=== PATIENT | female | born 2005 | race Caucasian/White ===

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

== ENCOUNTER 2025-02-07 23:46 | Emergency (ER) | payer OTHER, SELFPAY ==
--- OUTSIDE RECORDS SUMMARY | 2025-02-04 16:00 | XMS_ITS | Encounter Summary ---
Author Organization [facility] [address] [place] [address] Care Team Providers Care Paint Line Production Supervisor Name Role Phone Unavailable Primary Care Provider Unavailabl e Reason for Visit * Reason Comments INFECTION, BLADDER Encounter Details Date Type Department Care Team (Late st Contact Info) Description 02/04/2025 4:00 PM CDT Office Visit [facility] [address] [address] [place] [address] Jose Roman PA-C [address] [place] [address] Urinary tract infection with hematuria, site unspecified (Primary Dx) Social History Tobacco Use Types Packs/Day Years Used Date Smoking Tobacco: Never Smokeless Tobacco: Never Tobacco Cessation:Counseling Given: Not Answered Comments No Sex and Gender Information Value Date Recorded Sex Assigned at Not on file Legal Sex Female 3:41 PM CDT Gender Identity Not on file Sexual Orientation Not on file documented as of this encounter Last Filed Vital Signs Vital Sign Reading Time Taken Comments Blood Pressure 114/66 02/04/2025 3:58 PM CDT Pulse 77 02/04/2025 3:58 PM CDT Temperature 37.4 C (99.3 F) 02/04/2025 3:58 PM CDT Respiratory Rate 16 02/04/2025 3:58 PM CDT Oxygen Saturation 99% 02/04/2025 3:58 PM CDT Inhaled Oxygen Concentration - - Weight - - Height - - Body Mass Index - - documented in this encounter Patient Instructions * Attachments The following attachments cannot be sent through Care Everywhere. * UTI (Urinary Tract Infection): Female (Occitan) documented in this encounter Progress Notes * Jose Roman PA-C - 02/04/2025 4:00 PM CDT Chief Complaint Patient presents with INFECTION, BLADDER Yahaira PAULINO [place] is a 19 y.o.female presents to the Urgent Care for INFECTION, BLADDER Symptoms: dysuria, frequency, flank pain located on the left, and burning Symptoms began 1 day(s) ago and are are worsening. Fever is absent. Significant urinary history: Chronic recurring UTI a lot when younger and Kidney infection when younger and then last month. Current medications include none. Concern or exposure to STD/STI: no. Last Menstrual Period: No LMP recorded. Patient requests an excuse letter for work/school: No SUBJECTIVE: This is a 19 y.o. female who complains of burning with urination, increased urinary frequency, and left flank pain starting yesterday. She notes having a kidney infection diagnosed at a urgent care in [place], [place], one month ago, treated with 7-day course of cephalexin. She has not had other UTI since childhood. She denies abdominal pain, new back pain, nausea, fever, or chills. OBJECTIVE: BP 114/66 (BP Location: Right Arm, BP Cuff Size: Small Adult/Large Pediatrics) Pulse 77 Temp 99.3 ??F (37.4 ??C) (Tympanic) Resp 16 SpO2 99% Physical Exam Vitals reviewed. Constitutional: Comments: Pleasant. Cardiovascular: Rate and Rhythm: Normal rate and regular rhythm. Pulmonary: Effort: Pulmonary effort is normal. Breath sounds: Normal breath sounds. Abdominal: Palpations: Abdomen is soft. Tenderness: There is no abdominal tenderness. There is left CVA tenderness (very mild). There is noright CVA tenderness. Neurological: Mental Status: She is alert and oriented to person, place, and time. Psychiatric: Mood and Affect: Mood normal. Behavior: Behavior normal. Last UA w/microscopic results: Lab Results Component Value Date/Time UCOL Yellow 02/04/2025 04:07 PM URAP Cloudy (A) 02/04/2025 04:07 PM SPGU <=1.005 (A) 02/04/2025 04:07 PM PHUR 6.5 02/04/2025 04:07 PM PROU Negative 02/04/2025 04:07 PM GLUUC Negative 02/04/2025 04:07 PM KETU Negative 02/04/2025 04:07 PM UBGQ 0.2 02/04/2025 04:07 PM BILIU Negative 02/04/2025 04:07 PM BLDU Moderate (A) 02/04/2025 04:07 PM NITRU Negative 02/04/2025 04:07 PM LEUKU Large (A) 02/04/2025 04:07 PM URBCS 4-7 (A) 02/04/2025 04:07 PM UWBC 51-100 (A) 02/04/2025 04:07 PM UBACT Moderate (A) 02/04/2025 04:07 PM UEPI Occasional 02/04/2025 04:07 PM ASSESSMENT / PLAN: 1. Urinary tract infection with hematuria, site unspecified (Primary) - Rx bactrim given, extended dose on recent episode of reported pyelonephritis. - Urinalysis Routine, Micro/Culture if Pos: Clean Catch; Future - sulfamethoxazole-trimethoprim (BACTRIM DS) 800-160 MG tablet; Take 1 Tablet by mouth two times a day for 5 days. Dispense: 10 Tablet; Refill: 0 - continue supportive cares (rest, fluids, OTC pain and fever relievers, as needed) - return to care if new onset or worsening symptoms, or if symptoms not improving as expected. Jose Roman PA-C, 02/04/2025, 4:19 PM documented in this encounter Nursing Notes * Anyi Lopez - 02/04/2025 4:00 PM CDT Yahaira Houston is a 19 y.o.female presents to the Urgent Care for INFECTION, BLADDER Symptoms: dysuria, frequency, flank pain located on the left, and burning Symptoms began 1 day(s) ago and are are worsening. Fever is absent. Significant urinary history: Chronic recurring UTI a lot when younger and Kidney infection when younger and then last month. Current medications include none. Concern or exposure to STD/STI: no. Last Menstrual Period: No LMP recorded. Patient requests an excuse letter for work/school: No documented in this encounter Plan of Treatment Not on file documented as of this encounter Results * (ABNORMAL) Urinalysis Routine, Micro/Culture if Pos: Clean Catch (02/04/2025 4:07 PM CDT) Urine Microscopic Evaluation Reflex Order Comment Urinalysis results meet criteria for reflex, urine microscopic evaluation performed. 02/04/2025 4:12 PM CDT [facility] Color Yellow 02/04/2025 4:12 PM CDT [facility] Clarity Cloudy(A) Clear 02/04/2025 4:12 PM CDT [facility] Specific [place] <=1.005(A) 1.005 - 1.030 02/04/2025 4:12 PM CDT [facility] pH 6.5 5.0 - 8.0 02/04/2025 4:12 PM CDT [facility] Protein Negative Neg/Trace mg/dL 02/04/2025 4:12 PM CDT [facility] Glucose Negative Negative mg/dL 02/04/2025 4:12 PM CDT [facility] Ketones Negative Negative mg/dL 02/04/2025 4:12 PM CDT [facility] Urobilinogen 0.2 <2.0 EU/dL 02/04/2025 4:12 PM CDT [facility] Bilirubin Negative Negative 02/04/2025 4:12 PM CDT [facility] Blood Moderate(A) Neg/Trace 02/04/2025 4:12 PM CDT [facility] Nitrite Negative Negative 02/04/2025 4:12 PM CDT [facility] Leukocyte Esterase Large(A) Negative 02/04/2025 4:12 PM CDT [facility] Source Clean Catch 02/04/2025 4:12 PM CDT [facility] Urine URINE SPECIMEN COLLECTION, CLEAN CATCH / Unknown Non-blood Collection / Unknown 02/04/2025 4:07 PM CDT 02/04/2025 4:07 PM CDT us Jose Roman PA-C LAB_1 Final Re sult [facility] CLIA: [id number] [address] [place] [id number] documented in this encounter Visit Diagnoses Diagnosis Urinary tract infection with hematuria, site unspecified- Primary documented in this encounter
--- OUTSIDE RECORDS SUMMARY | 2025-02-04 16:00 | XMS_ITS | Encounter Summary ---
Author Organization [facility] [address] [place] [address] Care Team Providers Care Hardboard Grinder Name Role Phone Unavailable Primary Care Provider Unavailabl e Reason for Visit * Reason Comments INFECTION, BLADDER Encounter Details Date Type Department Care Team (Late st Contact Info) Description 02/04/2025 4:00 PM CDT Office Visit [facility] [address] [place] [address] Jose Roman PA-C [address] [place] [phone] Urinary tract infection with hematuria, site unspecified [...] Everywhere. * UTI (Urinary Tract Infection): Female (German) documented in this encounter Progress Notes * [...] infection diagnosed at a urgent care in [place], [place], one month ago, treated with 7-day [...] 02/04/2025 4:12 PM CDT [facility] Specific [place] <=1.005(A) 1.005 - 1.030 02/04/2025 4:12 PM [...] LAB_1 Final Re sult [facility] CLIA: [id number] [address] [place] [phone] documented in this encounter Visit Diagnoses Diagnosis Urinary tract infection with hematuria, site unspecified- Primary documented in this encounter
--- OUTSIDE RECORDS SUMMARY | 2025-02-04 16:20 | XMS_ITS | Encounter Summary ---
Author Organization [facility] Address [address] [place] [address] Care Team Providers Care Machine Engraver Name Role Phone Unavailable Primary Care Provider Unavailabl e Encounter Details Date Type Department Care Team (Late st Contact Info) Description 02/04/2025 4:20 PM CDT Lab Visit [facility] [address] [place], [place] [id number] Dysuria Social History Tobacco Use Types Packs/Day Years Used Date Smoking Tobacco: Never Smokeless Tobacco: Never Comments No Sex and Gender Information Value Date Recorded Sex Assigned at Not on file Legal Sex Female 3:41 PM CDT Gender Identity Not on file Sexual Orientation Not on file documented as of this encounter Plan of Treatment Not on file documented as of this encounter Procedures Procedure Name Priority Date/Time Associated Diagnosis Comments URINE CULTURE STAT 02/04/2025 4:07 PM CDT Dysuria URINALYSIS ROUTINE, MICRO/CULTURE IF POS STAT 02/04/2025 4:07 PM CDT Dysuria UA MICRO STAT 02/04/2025 4:07 PM CDT Dysuria documented in this encounter Results * (ABNORMAL) Urine Culture (02/04/2025 4:07 PM CDT) Urine Culture Growth(A) 02/05/2025 7:48 PM T [facility] Urine Culture >100,000 CFU/mL Staphylococcus saprophyticus 02/05/2025 7:48 PM T [facility] Comment:Routine susceptibili ty of Staphyococcus saprophyticus is not recommended by CLSI since infections respond to antimicrobial agents commonly used to treat acute uncomplicated urinary tract infections. Urine URINE SPECIMEN COLLECTION, CLEAN CATCH / Unknown Non-blood Collection / Unknown 02/04/2025 4:07 PM CDT 02/04/2025 4:12 PM CDT us Jose Roman PA-C LAB_1 Final Re sult Performing Organization Address City/[facility] Co de Phone Number [facility] CLIA: [id number] [address] [place] [id number] [place] [address] * (ABNORMAL) Urine Microscopic Evaluation: Clean Catch (02/04/2025 4:07 PM CDT) Urine Culture Comment Urinalysis results meet criteria for reflex, culture performed. 02/04/2025 4:12 PM CDT [facility] Red Blood Cells 4-7(A) 0 - 3 /HPF 02/04/2025 4:12 PM CDT [facility] White Blood Cells 51-100(A) 0 - 5 /HPF 02/04/2025 4:12 PM CDT [facility] Bacteria Moderate(A) None Seen /HPF 02/04/2025 4:12 PM CDT [facility] Squamous Epithelial Cells Occasional None Seen, Occasiona l, Few /HPF 02/04/2025 4:12 PM CDT [facility] Urine URINE SPECIMEN COLLECTION, CLEAN CATCH / Unknown Non-blood Collection / Unknown 02/04/2025 4:07 PM CDT 02/04/2025 4:07 PM CDT us Jose Roman PA-C LAB_1 Final Re sult Performing Organization Address City/[facility] Co de Phone Number [facility] CLIA: [id number] [address] [place] [phone] * (ABNORMAL) Urinalysis Routine, Micro/Culture if Pos: Clean Catch (02/04/2025 4:07 PM CDT) Urine Microscopic Evaluation Reflex Order Comment Urinalysis results meet criteria for reflex, urine microscopic evaluation performed. 02/04/2025 4:12 PM CDT [facility] Color Yellow 02/04/2025 4:12 PM CDT [facility] Clarity Cloudy(A) Clear 02/04/2025 4:12 PM CDT [facility] Specific [place] <=1.005(A) 1.005 - 1.030 02/04/2025 4:12 PM [...] LAB_1 Final Re sult [facility] CLIA: [id number] [address] [place] [address] documented in this encounter Visit Diagnoses Diagnosis Dysuria documented in this encounter
--- OUTSIDE RECORDS SUMMARY | 2025-02-04 16:20 | XMS_ITS | Encounter Summary ---
Author Organization [facility] Address [address] [place] [address] Care Team Providers Care Tomato Grader Name Role Phone Unavailable Primary Care Provider Unavailabl e Encounter Details Date Type Department Care Team (Late st Contact Info) Description 02/04/2025 4:20 PM CDT Lab Visit [facility] [address] [place], [place] [phone] Dysuria Social History Tobacco Use Types Packs/Day [...] Urine Culture Growth(A) 02/05/2025 7:[address] [facility] Urine Culture >100,000 CFU/mL Staphylococcus saprophyticus 02/05/2025 7:[address] [facility] Comment:Routine susceptibili ty of Staphyococcus saprophyticus is not recommended by CLSI since infections respond to antimicrobial agents commonly used to treat acute uncomplicated urinary tract infections. Urine URINE SPECIMEN COLLECTION, CLEAN CATCH / Unknown Non-blood Collection / Unknown 02/04/2025 4:07 PM CDT 02/04/2025 4:12 PM CDT us Jose Roman PA-C LAB_1 Final Re sult Performing Organization Address City/[facility] Co de Phone Number [facility] CLIA: [id number] [address] [place] [phone] [place] [address] * (ABNORMAL) Urine Microscopic Evaluation: Clean Catch [...] LAB_1 Final Re sult Performing Organization Address City/[facility] Co de Phone Number [facility] CLIA: [id number] [address] [place] [phone] * (ABNORMAL) Urinalysis Routine, Micro/Culture if Pos: Clean Catch (02/04/2025 4:07 PM CDT) Urine Microscopic Evaluation Reflex Order Comment Urinalysis results meet criteria for reflex, urine microscopic evaluation performed. 02/04/2025 4:12 PM CDT [facility] Color Yellow 02/04/2025 4:12 PM CDT [facility] Clarity Cloudy(A) Clear 02/04/2025 4:12 PM CDT [facility] Specific [place] <=1.005(A) 1.005 - 1.030 02/04/2025 4:12 PM [...] LAB_1 Final Re sult [facility] CLIA: [id number] [address] [place] [address] documented in this encounter Visit Diagnoses Diagnosis Dysuria documented in this encounter
--- OUTSIDE RECORDS SUMMARY | 2025-02-05 11:12 | XMS_ITS | Encounter Summary ---
Author Organization [facility] Address [address] [place] [address]. [place] [address] Care Team Providers Care Strategic Debriefing Officer Name Role Phone Charisse Saeed MD Primary Care Provider [phone] Reason for Visit * Reason Comments UTI Needs abx, script wa s sent to closed pharmacy Medication Refill Needs abx Encounter Details Date Type Department Care Team ([facility] st Contact Info) Description 02/05/2025 11:12 AM CDT - 02/05/2025 11:36 AM CDT Emergency [facility] Emergency Department [address] [place] [phone] Jd Broderick, PA-C [address] [place] [phone] Pyelonephritis (Primary Dx); Acute cystitis without hematuria Discharge Disposition: Home or Self Care Social History Tobacco Use Types Packs/Day Years [...] your partner or ex-partner? 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 Legal Sex Female 2:58 PM TUMBLING BARREL PAINTER Gender Identity Female 07/08/2024 3:24 PM TUMBLING BARREL PAINTER Sexual Orientation Straight 07/08/2024 3: 24 PM TUMBLING BARREL PAINTER documented as of this encounter Last Filed Vital Signs Vital Sign Reading Time Taken Comments Blood Pressure 110/74 02/05/2025 11:09 AM CDT Pulse 78 02/05/2025 11:09 AM CDT Temperature 36.7 C (98.1 F) 02/05/2025 11:09 AM CDT Respiratory Rate 18 02/05/2025 11:09 AM CDT Oxygen Saturation 99% 02/05/2025 11:09 AM CDT Inhaled Oxygen Concentration - - Weight 52.2 kg (115 lb) 02/05/2025 11:09 AM CDT Height 162.6 cm (5' 4) 02/05/2025 11:09 AM CDT Body Mass Index 19.74 02/05/2025 11:09 AM CDT documented in this encounter Discharge Instructions * Discharge Instructions* Jd Broderick PA-C - 02/05/2025 11:31 AM CDT You are seen today for kidney infection. I prescribed your Bactrim to the hospital outpatient pharmacy. They are open till 4 PM today. Please call back if you are not able to pick this medication up and start taking it. Take antibiotic with food as this can help with upset stomach. Return to the emergency department if you have new or worsening symptoms. Use Tylenol and ibuprofen as needed for body aches and fever control as we discussed. As we are concerned that this has spread up to the kidney I do think we should expand coverage to 10 days. documented in this encounter Medications at Time of Discharge sulfamethoxazole- trimethoprim (BACTRIM DS) 800-160 MG tablet Take 1 tablet by mouth 2 times daily for 10 days. 20 tablet 02/05/2025 02/15/2025 documented as of this encounter ED Notes * Jd Broderick PA-C - 02/05/2025 11:22 AM CDT ED Provider Note [facility] Emergency Department History Chief Complaint Patient presents with UTI Needs abx, script was sent to closed pharmacy Medication Refill Needs abx HPI Yahaira Houston is a 19 year old female, with a history of previous kidney infection, who presents to the emergency department needing antibiotics for UTI. She had presented to urgent care yesterday, had been diagnosed with a urinary tract infection. She is a [employer] student, they sent her prescription to her [facility] pharmacy. However it is a holiday weekend and the pharmacist was closed. She is hoping to get this prescription sooner so presents for evaluation. She reports that she is havingpain on the left side of the back that started yesterday afternoon, felt feverish this morning, didnot take her temperature. No new symptoms since being seen at the urgent care yesterday. Independent historian: None Chart review: Reviewed urgent care note from 02/04/2025. Patient diagnosed with UTI with hematuria. Physical Exam BP: 110/74 Pulse: 78 Temp: 98.1 ??F (36.7 ??C) Resp: 18 Height: 162.6 cm (5' 4) Weight: 52.2 kg (115 lb) SpO2: 99 % Physical Exam Vitals and nursing note reviewed. Constitutional: General: She is not in acute distress. Appearance: Normal appearance. She is not ill-appearing, toxic-appearing or diaphoretic. HENT: Nose: Nose normal. Mouth/Throat: Mouth: Mucous membranes are moist. Pharynx: Oropharynx is clear. Eyes: Extraocular Movements: Extraocular movements intact. Pupils: Pupils are equal, round, and reactive to light. Cardiovascular: Rate and Rhythm: Normal rate and regular rhythm. Pulses: Normal pulses. Heart sounds: Normal heart sounds. Pulmonary: Effort: Pulmonary effort is normal. Breath sounds: Normal breath sounds. Abdominal: Tenderness: There is left CVA tenderness. Musculoskeletal: General: Normal range of motion. Cervical back: Normal range of motion. Right lower leg: No edema. Left lower leg: No edema. Skin: General: Skin is warm and dry. Neurological: General: No focal deficit present. Mental Status: She is alert and oriented to person, place, and time. Psychiatric: Mood and Affect: Mood normal. Behavior: Behavior normal. ED Course, Procedures, & Data Procedures No results found for any visits on 02/05/25. Medications - No data to display Labs Ordered and Resulted from Time of ED Arrival to Time of ED Departure - No data to display No orders to display Independent interpretation: none Discussion of management: none Social determinants of health: unknown Assessment & Plan Yahaira Houston is a 19 year old female who presents to the emergency department for evaluationof medication adjustment. Upon presentation patient is alert and oriented, speaking in full sentences, afebrile, in no acute distress, skin warm pink and dry. Patient was recently diagnosed with a UTI, is requesting prescription to a new pharmacy due to the holiday weekend. Differential included pyelonephritis, acute cystitis, kidney stone. Patient's history and physical exam consistent with an acute uncomplicated pyelonephritis. She recently reported a previous kidney infection. I reviewed the urgent care note do not feel that she needs a repeat urine analysis, will prescribe Bactrim as originally prescribed however will extend coverage to 10 days given that she ishaving left CVA tenderness. Patient is agreeable with this plan, prescription sent to the patient'spharmacy of choice, all questions were answered to the best my ability, return precautions follow-up instructions given. Vital signs are stable. Critical care was not performed. Medical Decision Making The patient's presentation was of low complexity (an acute and uncomplicated illness or injury). The patient's evaluation involved: review of external note(s) from 1 sources (see separate area of note for details) The patient's management necessitated moderate risk (prescription drug management including medications given in the ED). Discharge Medication List as of 02/05/2025 11:33 AM START taking these medications Details sulfamethoxazole-trimethoprim (BACTRIM DS) 800-160 MG tablet Take 1 tablet by mouth 2 times daily for 10 days., Disp-20 tablet, R-0, E-Prescribe Final diagnoses: Pyelonephritis Acute cystitis without hematuria Jd Broderick PA-C, CAQ-EM [facility] 02/05/2025 Jd Broderick PA-C 02/06/25 0942 * Britni Donnelly RN - 02/05/2025 11:08 AM CDT Patient was at Urgent Care yesterday and was diagnosed with a UTI. Patient is a patient at the and they sent her prescription for antibiotics to the pharmacy on campus, however it is closed on weekends and tomorrow for the holiday. Patient is looking to get the prescription. documented in this encounter Plan of Treatment Not on file documented as of this encounter Visit Diagnoses Diagnosis Pyelonephritis- Primary Pyelonephritis, unspecified Acute cystitis without hematuria Acute cystitis documented in this encounter Care Teams Strategic Debriefing Officer Relationship Specialty Start Date End Date Charisse Saeed MD [address] [place] [address] PCP - General 08/15/24 documented as of this encounter
--- OUTSIDE RECORDS SUMMARY | 2025-02-05 11:12 | XMS_ITS | Encounter Summary ---
Author Organization [facility] Address [address] [place] [address]. [place] [address] Care Team Providers Care High Pressure Operator Name Role Phone Charisse Saeed MD Primary Care Provider [phone] Reason for Visit * Reason Comments UTI Needs abx, script wa s sent to closed pharmacy Medication Refill Needs abx Encounter Details Date Type Department Care Team ([facility] st Contact Info) Description 02/05/2025 11:12 AM CDT - 02/05/2025 11:36 AM CDT Emergency [facility] Emergency Department [address] [phone] Jd Broderick, PA-C [address] [place] [address] [phone] Pyelonephritis (Primary Dx); Acute cystitis without hematuria [...] Sex Assigned at Female 07/08/2024 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 She is a [employer] student, they sent her prescription to her [facility] pharmacy. However it is a holiday [...] cystitis without hematuria Jd Broderick PA-C, CAQ-EM [facility] 02/05/2025 Jd Broderick PA-C 02/06/25 [...] cystitis documented in this encounter Care Teams High Pressure Operator Relationship Specialty Start Date End Date Charisse Saeed MD [address] [place] [address] PCP - General 08/15/24 documented as of this encounter
--- NOTE | 2025-02-07 23:47 | ED_ITS ---
HPI - General Adult General Time Seen by Provider: 23:47 Date Seen: 02/07/25 Chief complaint: Urogenital Problems, Female Stated complaint: uti Time Seen by Provider: 02/07/25 23:46 Source: patient, RN notes reviewed and old records reviewed Mode of arrival: ambulatory Limitations: no limitations History of Present Illness HPI narrative: 19-year-old female who comes in today with concern for flank pain. Patient reports recently being treated for urinary tract infection, urinary symptoms have improved but she continues to have left low back pain. This is worse with movement standing. She has been taking ibuprofen. Mild nausea, no vomiting. Related Data Home Medications ?Medication ?Instructions ?Recorded ?Confirmed escitalopram oxalate 10 mg tablet 10 mg PO DAILY 07/1002/07/25 levonorgestrel (Mirena) 1 device intrauterine ONCE 0 12/12/24 12/12/24 meloxicam 15 mg tablet 15 mg PO DAILY 12/12/24 0712/30 multivitamin 1 tab PO QAM 12/12/24 Allergies Allergy/AdvReac Type Severity Reaction Status Date / Time No Known Drug Allergies Allergy Verified 02/07/25 23:55 [facility] Medical History Perioral dermatitis ?L71.0 - Perioral dermatitis (ICD-10) Social History Smoking Status: Never smoker Second hand tobacco smoke exposure: No How often do you have a drink containing alcohol: never AUDIT-C Alcohol total score: 0 Non-prescribed substance use: denies use Exam 2 Narrative: Exam Narrative: General: Well-developed and well-nourished, no acute distress Head: Atraumatic and normocephalic Eyes: Pupils are equal reactive, extraocular motions intact, conjunctiva clear ENT: External nose and ears are normal, posterior pharynx without erythema or exudate Neck: No midline cervical tenderness, full spontaneous range of motion the neck, trachea midline, no adenopathy Heart: Regular rate and rhythm no murmurs or thrills Lungs: Clear to auscultation bilaterally without wheezes or crackles Abdomen: Soft, nontender, nondistended with active bowel sounds Musculoskeletal: No tenderness, deformity, or edema. Left mid lumbar tenderness, no left CVA tenderness. Neurologic: Awake, alert, and oriented x3, no gross focal neurologic deficits, cranial nerves intact as tested Psych: Mood and affect are appropriate Skin: No rashes Const: Vital Signs, click to edit/add: Vital Signs - 24 hr 02/07/25 23:52 Temperature 98.1 F Pulse Rate [Pulse Oximeter] 88 Respiratory Rate 18 Blood Pressure [Ri ght Upper Arm] 134/71 Pulse Oximetry 98 Oxygen Delivery Me thod Room Air Course Course ED Course: Reviewed prior urgent care visit from December 2024 when patient was seen with dysuria and urinary frequency. At that time, urinalysis with 50-100 red cells, 50-100 white cells, culture negative. Also reviewed emergency department visit from February 05 when patient was seen for kidney infection, patient was prescribed Bactrim. Urinalysis demonstrated moderate blood and large leukocyte esterase, 50-100 white cells with moderate bacteria, culture demonstrates Staph saprophyticus. Urinalysis independently interpreted by me negative for findings for infection. Patient is concerned about ongoing left back pain in setting of recent urinary tract infection. We discussed findings on urine today which show resolution of the previous infection. Patient mom were still little concerned about possible other pathology including kidney stone. CT scan will be ordered although I suspect that patient's pain may be musculoskeletal at this point. Ibuprofen ordered. Reevaluation(s) Time of Reevaluation #1: 00:52 Reevaluation #1: CT abdomen and pelvis independently interpreted by me without evidence of hydronephrosis, ureteral stone. Patient is stable for discharge with continued treatment with and ibuprofen. Vital Signs Vital signs: Initial Vital Signs Temperature 98.1 F 02/07/25 23:52 Temperature Source Temporal Artery Scan 02/07/25 23:52 Pulse Rate 88 02/07/25 23:52 Respiratory Rate 18 02/07/25 23:52 Blood Pressure 134/71 02/07/25 23:52 Blood Pressure Mean 92 02/07/25 23:52 Blood Pressure Position Sitting 02/07/25 23:52 Pulse Oximetry 98 02/07/25 23:52 Oxygen Delivery Method Room Air 02/07/25 23:52 Vital Signs Temperature 98.1 F 02/07/25 23:52 Pulse Rate 88 02/07/25 23:52 Respiratory Rate 18 02/07/25 23:52 Blood Pressure 134/71 02/07/25 23:52 Pulse Oximetry 98 02/07/25 23:52 Oxygen Delivery Method Room Air 02/07/25 23:52 Temperature 98.1 F 02/07/25 23:52 Pulse Rate 88 02/07/25 23:52 Respiratory Rate 18 02/07/25 23:52 Blood Pressure 134/71 02/07/25 23:52 Pulse Oximetry 98 02/07/25 23:52 Oxygen Delivery Method Room Air 02/07/25 23:52 Medications Administered Medications: Generic Name Dose Route Start Last Admin Trade Name Sapna PRN Reason Stop Dose Admin Ibuprofen 600 mg 02/08/25 00:36 02/08/25 00:41 Ibuprofen 600 Mg Tablet PO 02/08/25 00:37 600 mg ONCE ONE Administration Medical Decision Making Lab Data Labs: Lab Results 02/07/25 Range/Units 23:57 Urine Color Yellow (Yellow) Urine Appearance Clear (Clear) Urine pH 7.0 (5.0-8.5) Ur Specific Oil Trough 1.010 (1.000-1.030) Urine Protein Negative (Negative) Urine Glucose (UA) Negative (Negative) Urine Ketones Negative (Negative) Urine Blood Trace-intact A (Negative) Urine Nitrite Negative (Negative) Urine Bilirubin Negative (Negative) Urine Urobilinogen 0.2 (0.2-1.0) Ur Leukocyte Esterase Negative (Negative) Urine RBC 0-2 (0-2) Urine WBC 0-2 (0-5) Ur Squamous Epith Cells Few (None-Few) Urine Bacteria None (None) Discharge Plan Discharge Clinical Impression: Acute left flank pain, Acute urinary tract infection Patient Disposition: Home, Self-Care Condition: Stable Instructions: Flank Pain (ED) Additional Instructions: Continue Tylenol and ibuprofen for pain Warm packs as needed Activity Level: No Restrictions Discharge Diet: Regular Prescriptions: No Action Mirena 21 mcg/24hr (up to 8 yrs) 52 mg intrauterine device 1 device intrauterine ONCE Rx Instructions: as a single dose multivitamin Tablet 1 tab PO QAM meloxicam 15 mg tablet 15 mg PO DAILY escitalopram oxalate 10 mg tablet 10 mg PO DAILY Follow Up/Referrals: Charisse Saeed MD [Primary Care Provider, Pediatrics] Stand Alone Forms: [facility] Instructions
--- OUTSIDE RECORDS SUMMARY | 2025-02-07 23:48 | XMS_ITS | Clinical Summary ---
Author Organization Formerly [facility] Address [address] [place] [address] Care Team Providers Care Supervisor Cook [facility] Name Role Phone Unavailable Primary Care Provider Unavailabl e Source Comments You are receiving this document as you are listed as the primary care provider,follow-up provider, or the patient has been referred to you for consultation.This is in compliance with the Medicare and[facility] EHR Incentive Program,which states Providers who transition their patient to another setting of careor provider of care or refers their patient to another provider of care shouldprovide summary care record for each transition of care or referral. [facility] Allergies No known active allergies Medications escitalopram (LEXAPRO) 10 MG tablet Take 1 Tablet (10 mg) by mouth daily. Active sulfamethoxazole -trimethoprim (BACTRIM DS) 800-160 MG tabletIndication s:Urinary tract infection with hematuria, site unspecified Take 1 Tablet by mouth two times a day for 5 days. 10 Tablet 02/04/2025 Active Active Problems No known active problems Encounters Date Type Department Care Team Description 02/06/2025 Results Follow-Up Virtual Urgent Care [address] [place] [address] Elinor Ramirez APRN, BRITTANY 02/04/2025 4:20 PM CDT Lab Visit [facility] [address] [facility] [place] [address] Dysuria 02/04/2025 4:00 PM CDT Office Visit [facility] [address] [place] [address] Jose Roman PA-C Urinary tract infection with hematuria, site unspecified (Primary Dx) from Last 3 Months Social History Tobacco Use Types Packs/Day Years Used Date Smoking Tobacco: Never Smokeless Tobacco: Never Tobacco Cessation:Counseling Given: Not Answered Comments No Sex and Gender Information Value Date Recorded Sex Assigned at Not on file Legal Sex Female 3:41 PM CDT Gender Identity Not on file Sexual Orientation Not on file Last Filed Vital Signs Vital Sign Reading Time Taken Comments Blood Pressure 114/66 02/04/2025 3:58 PM CDT Pulse 77 02/04/2025 3:58 PM CDT Temperature 37.4 C (99.3 F) 02/04/2025 3:58 PM CDT Respiratory Rate 16 02/04/2025 3:58 PM CDT Oxygen Saturation 99% 02/04/2025 3:58 PM CDT Inhaled Oxygen Concentration - - Weight - - Height - - Body Mass Index - - Plan of Treatment Health Maintenance Due Date Last Done Comments Hep C Screening (Preventive Services) 2005 MenB Immunization Discussion 2005 HGB 2017 HIV Screening (Preventive Services) 2021 Adult Preventive Visit 2023 HepB Vaccine (1) 2024 COVID-19 Vaccine ( season) 2025 09/30/2021, 11/20/2020, 10/23/2020 Influenza Vaccine (#1) 2025 , 02/18/2021, 04/24/2020, Additional history exists Chlamydia 05/06/2025 05/06/2024, 04/09, 06/20/2022 DTaP/Tdap/Td Vaccine (7 - Tdap) 01/19/2027 01/19/2017, 06/17/2010, 10/02/2006, Additional history exists Zoster/Shingles Vaccine (1 of 2) 2055 Hib Vaccine Completed 10/02/2006, 11/2005, 2005 Pneumococcal Vaccine Aged Out 10/02/2006, 2005, 2005, Additional history exists No longer eligible based on patient's age to complete this topic HepA Vaccine Completed 05/11/2007, 10/02/2006 IPV (Polio) Vaccine Completed 06/17/2010, 10/02/2006, 2005, Additional history exists HPV Vaccine Completed 01/19/2017, 01/16/2015 MCV4 Vaccine Completed 05/20/2021, 01/19/2017 Procedures Procedure Name Priority Date/Time Associated Diagnosis Comments URINE CULTURE STAT 02/04/2025 4:07 PM CDT Dysuria UA MICRO STAT 02/04/2025 4:07 PM CDT Dysuria URINALYSIS ROUTINE, MICRO/CULTURE IF POS STAT 02/04/2025 4:07 PM CDT Dysuria from Last 3 Months Results * (ABNORMAL) Urine Culture (02/04/2025 4:07 PM CDT) Urine Culture Growth(A) 02/05/2025 7:48 PM CDT [facility] Urine Culture >100,000 CFU/mL Staphylococcus saprophyticus 02/05/2025 7:48 PM CDT [facility] Comment:Routine susceptibili ty of Staphyococcus saprophyticus is not recommended by CLSI since infections respond to antimicrobial agents commonly used to treat acute uncomplicated urinary tract infections. Urine URINE SPECIMEN COLLECTION, CLEAN CATCH / Unknown Non-blood Collection / Unknown 02/04/2025 4:07 PM CDT 02/04/2025 4:12 PM CDT us Jose Roman PA-C LAB_1 Final Re sult [facility] CLIA: [id number] [address] [place] [address] * (ABNORMAL) Urinalysis Routine, Micro/Culture if Pos: Clean Catch (02/04/2025 4:07 PM CDT) Urine Microscopic Evaluation Reflex Order Comment Urinalysis results meet criteria for reflex, urine microscopic evaluation performed. 02/04/2025 4:12 PM CDT [facility] Color Yellow 02/04/2025 4:12 PM CDT [facility] Clarity Cloudy(A) Clear 02/04/2025 4:12 PM CDT [facility] Specific Girard <=1.005(A) 1.005 - 1.030 02/04/2025 4:12 PM [...] LAB_1 Final Re sult [facility] CLIA: [id number] [address] [place] [address] * (ABNORMAL) Urine Microscopic Evaluation: Clean Catch [...] LAB_1 Final Re sult [facility] CLIA: [id number] [address] [place] [address] from Last 3 Months [place] [address]
--- OUTSIDE RECORDS SUMMARY | 2025-02-07 23:48 | XMS_ITS | Encounter Summary ---
Author Organization [facility] Address [address] [place] [address]. [place] [address] Care Team Providers Care Business Account Leader Name Role Phone Charisse Saeed MD Primary Care Provider [phone] Encounter Details Date Type Department Care Team (Late st Contact Info) Description 09/07/2024 [facility] [address] [place] [address] Claudia Abbott, PT [address] [place] [address] Social History Tobacco Use Types Packs/Day [...] Sex Assigned at Female 07/08/2024 3:[address] MRI TECHNOLOGIST Legal Sex Female 2:[address] MRI TECHNOLOGIST Gender Identity Female 07/08/2024 3:[address] MRI TECHNOLOGIST Sexual Orientation Straight 07/08/2024 3: [address] MRI TECHNOLOGIST documented as of this encounter Plan of Treatment Not on file documented as of this encounter Visit Diagnoses Not on filedocumented in this encounter Care Teams Business Account Leader Relationship Specialty Start Date End Date Charisse Saeed MD [address] [facility] [address] PCP - General 08/15/24 documented as of this encounter
--- OUTSIDE RECORDS SUMMARY | 2025-02-07 23:48 | XMS_ITS | Encounter Summary ---
[facility] Address [address] [place] [address] Care Team Providers Care Coil Cutter Name Role Phone Unavailable Primary Care Provider Unavailabl e Encounter Details Date Type Department Care Team (Late st Contact Info) Description 02/06/2025 Results Follow-Up Virtual Urgent Care [address] [place] [address] Elinor Ramirez, SCHOOL OFFICE ASSISTANT, [facility] [address] [address] Social History Tobacco Use Types Packs/Day Years [...]
--- OUTSIDE RECORDS SUMMARY | 2025-02-07 23:48 | XMS_ITS | Encounter Summary ---
Author Organization [facility] Address [address] [place] [address]. [place] [address] Care Team Providers Care Roofing Apprentice Name Role Phone Charisse Saeed MD Primary Care Provider Encounter Details Date Type Department Care Team (Latest Contact Info) Description 02/05/2025 Travel Social History Tobacco Use Types Packs/Day [...] Sex Assigned at Female 07/08/2024 3:24 PM HIP HOP DANCER Legal Sex Female 2:58 PM HIP HOP DANCER Gender Identity Female 07/08/2024 3:24 PM HIP HOP DANCER Sexual Orientation Straight 07/08/2024 3: 24 PM HIP HOP DANCER documented as of this encounter Plan of Treatment Not on file documented as of this encounter Visit Diagnoses Not on filedocumented in this encounter Care Teams Roofing Apprentice Relationship Specialty Start Date End Date [place] [address] PCP - General 08/15/24 documented as of this encounter
--- OUTSIDE RECORDS SUMMARY | 2025-02-07 23:48 | XMS_ITS | Clinical Summary ---
Author Organization [place] Address [address] [place] [address]. [place] [address] Care Team Providers Care Country Printer Apprentice Name Role Phone Charisse Saeed MD Primary Care Provider [phone] Allergies No known active allergies Medications sulfamethoxazole -trimethoprim (BACTRIM DS) 800-160 MG tablet Take 1 tablet by mouth 2 times daily for 10 days. 20 tablet 02/05/2025 Active Active Problems Problem Noted Date Diagnosed Date Lumbar radiculopathy 08/17/2024 Spondylolisthesis of lumbar region 08/17/2024 Encounters Date Type Department Care Team Description 02/05/2025 11:12 AM CDT - 02/05/2025 11:36 AM CDT Emergency [facility] Emergency Department [address] [place] [address] Jd Broderick, PA-C Pyelonephritis (Primary Dx); Acute cystitis without hematuria Discharge Disposition: Home or Self Care 02/05/2025 Travel from Last 3 Months Social History [...] Sex Assigned at Female 07/08/2024 3:24 PM POSTAL SERVICE MAIL PROCESSOR Legal Sex Female 2:58 PM POSTAL SERVICE MAIL PROCESSOR Gender Identity Female 07/08/2024 3:24 PM POSTAL SERVICE MAIL PROCESSOR Sexual Orientation Straight 07/08/2024 3: 24 PM POSTAL SERVICE MAIL PROCESSOR Last Filed Vital Signs Vital Sign Reading [...] Mass Index 19.74 02/05/2025 11:09 AM CDT Plan of Treatment Health Maintenance Due Date Last Done Comments ADVANCE CARE PLANNING 2005 ANNUAL REVIEW OF HM ORDERS 2005 MENINGITIS B VACCINE (1 of 2 - Standard) 2021 HEPATITIS C SCREENING 2023 PHQ-2 (once per calendar year) 2024 COVID-19 VACCINE ( - season) 2025 09/30/2021, 11/20/2020, 10/23/2020 INFLUENZA VACCINE (#1) 2025 , 02/18/2021, 04/24/2020, Additional history exists CHLAMYDIA SCREENING [...] complete this topic IPV VACCINE Completed 06/17/2010, 09/07, 2005, Additional history exists VARICELLA VACCINE Completed 06/17/2010, , 04/14/2006 HPV VACCINE Completed 01/19/2017, 01/16/2015 MENINGITIS VACCINE Completed 05/20/2021, 01/19/2017 HIV SCREENING Completed 06/17/2024 Insurance [facility] Care Teams Country Printer Apprentice Relationship Specialty Start Date End Date Charisse Saeed MD [address] [place] [address] PCP - General 08/15/24
--- OUTSIDE RECORDS SUMMARY | 2025-02-07 23:49 | XMS_ITS | Clinical Summary ---
Author Organization [facility] Address [facility] [place] [address] Care Team Providers Care Passenger Relations Representative Name Role Phone Charisse Saeed MD Primary [...] Description 11/29/2024 7:40 AM CDT Office Visit [facility] [address] [place] [address] Yoan Santos MD Procedure (Bilateral L5-S1 TFESI) 11/24/2024 Travel 11/09/2024 Transcribe Orders [facility] [address] [place] [address] Yoan Santos MD from Last 3 Months Immunizations Immunization Administration Dates Next Due AMB Influenza, IIV3 (Age >=3 years)(Flu Clinic Only) 04/18/2013 COVID-19 vaccine (Pfizer-Bio NTech 30mcg/0.3mL) 12YO+ SKYLER-SUCROSE PF, MDV 09/30/2021 COVID-19 vaccine (Pfizer-Bio NTech 30mcg/0.3mL) PF, MDV 11/20/2020,10/23/2020 [id number]-SNI (Pediarix) 10/02/2006,10/07,2005,05/29 DTaP-IPV (Kinrix) 06/17/2010 HIB PRP-OMP [...] on file Legal Sex Female 7:12 AM CLIPPING MARKER Gender Identity Not on file Sexual Orientation [...] lb 6.4 oz) 06/23/2024 3:37 P M CLIPPING MARKER Height 163.5 cm (5' 4.37) 06/17/2024 7:46 AM CS T Head Circumference 48.3 cm 05/11/2007 11 :54 AM CLIPPING MARKER Head Circumference Percentile 69.27% 11:54 AM CLIPPING MARKER Growth Chart: [facility] (Girls, 0- 36 Months) Body Mass Index 20.43 06/17/2024 7:46 AM CLIPPING MARKER Plan of Treatment Health Maintenance Due Date Last Done Comments Hepatitis C screening for age 18-79 2023 COVID-19 vaccine series ( season) 2025 09/30/2021, 11/20/2020, 10/23/2020 Influenza [...] Additional history exists Tetanus booster 01/19/2027 01/19/2017 RSV vaccine for adults or (1 - 1-dose 75+ series) 2080 Hepatitis B series for 19+ Completed 10/02, 2005, 2005, Additional history exists Pneumococcal series for age 6-49 Aged Out 10/02/2006, 2005, 2005, Additional history exists No longer eligible based on patient's age to complete this topic HPV series for age 9-26 Completed 01/19/2017, 01/16 Meningococcal series for age 11-21 Completed 05/20/2021, 01/19/2017 HIV for age 15-65 Completed 06/17/2024 Procedures Procedure Name Priority Date/Time Associated Diagnosis Comments AMB EPIDURAL STEROID INJECTION Routine 11/29/2024 12:00 AM CDT Spinal stenosis, lumbar region, with neurogenic claudication ANTI HIV 1/2 Routine 06/17/2024 8:15 AM CLIPPING MARKER Screening for HIV (human immunodeficiency virus) GC CHLAMYDIA TRACH PROBE Routine 05/06/2024 8:58 AM CLIPPING MARKER Screening examination for STI from Last 3 Months or Most Recently Relevant to Health Maintenance Results * AMB EPIDURAL STEROID INJECTION (11/29/2024 12:00 AM CDT) us Yoan Santos MD NEUROLOGY ORD Final Resu lt * ANTI HIV 1/2 [05135.0] (06/17/2024 8:15 AM CLIPPING MARKER) HIV AG/AB, 4TH GEN NON-REACT HAYDEN NON-REACT HAYDEN [employer] [facility] Comment: HIV-1 antigen and HIV-1/HIV-2 antibodies were [...] purpose. For additional information please refer to http://education.UPlanMe.ComplyMD/faq/RBN524 (This link is being provided for informational/ educational purposes only.) The performance of this assay has not been clinically validated in patients less than 2 years old. Blood BLOOD SPECIMEN / Unknown 06/17/2024 8:15 AM CLIPPING MARKER 06/17/2024 8:16 AM CLIPPING MARKER us Charisse Saeed MD SEND OUTS Fin al Result [employer] [facility] [address] [place] [address], [employer] [facility] [address] [place] [address] * GC CHLAMYDIA TRACH PROBE (05/06/2024 8:58 AM CLIPPING MARKER) CHLAMYDIA PROBE Negative 6:21 PM CLIPPING MARKER [facility] N GONORRHOEAE PROBE Negative 05/06/2024 6:21 PM CLIPPING MARKER [facility] Other URINE SPECIMEN / Unknown Non-Blood / Unknown 05/06/2024 8:58 AM CLIPPING MARKER 05/06/2024 9:06 AM CLIPPING MARKER us Charisse Saeed MD MICROBIOLOGY Fin al Result Performing Organization Address City/[facility]/ZIP Co de Phone Number [facility] [address] [place] [address], from Last 3 Months or Most Recently Relevant to Health Maintenance Insurance [facility] Care Teams Passenger Relations Representative Relationship Specialty Start Date End Date Charisse Saeed MD [address] [place] [address] PCP - General 05
[2025-02-07 23:52] VITALS: BP 134/71; PULSE 88; RESP 18; TEMP 36.7; O2SAT 98; BMI 19.7
[2025-02-08 00:11] LABS: Appearance Urine Clear (Clear)
--- NOTE | 2025-02-08 00:36 | CRLHL7_ITS ---
For Patients: As a result of the Century Cures Act, medical imaging exams and procedure reports are released immediately into your electronic medical record. You may view this report before your referring provider. If you have questions, please contact your health care provider. INDICATION: Left flank pain, recent kidney infection, question stone. TECHNIQUE: CT of the abdomen and pelvis without IV contrast. Coronal and sagittal reconstructions. COMPARISON: None. FINDINGS: Lower chest: Unremarkable. Liver: Unremarkable. Gallbladder and bile ducts: Unremarkable. No biliary dilatation. Spleen: Unremarkable. Pancreas: Unremarkable. Adrenal glands: Unremarkable. Kidneys, Ureters, and Bladder: No hydronephrosis or ureteral dilation. No intrarenal or ureteral calculi. Marked circumferential bladder wall thickening. Reproductive organs: IUD in the uterus. GI tract/Peritoneum: No small bowel dilation. Large stool burden. Negative appendix. No intraperitoneal free air or fluid. Vasculature: Abdominal aorta is normal in caliber. Lymph nodes: No lymphadenopathy. Abdominal Wall: Umbilical piercing. 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 IMPRESSION: 1. Marked bladder wall thickening suggesting inflammation. Correlate with urinalysis. 2. No hydronephrosis or obstructing urinary calculi. 3. Large stool burden. Please note that all CT scans at this facility use dose modulation, iterative reconstruction, and/or weight-based dosing when appropriate to reduce radiation dose to as low as reasonably achievable. Dictated by Dona Meyers MD @ 02/08/2025 1:16:41 AM (Electronically Signed)
--- OUTSIDE RECORDS SUMMARY | 2025-02-08 00:39 | XMS_ITS | Clinical Summary ---
Author Organization [place] [facility] Address [address] [place] [address]. [place] [address] Care Team Providers Care Oracle Security Consultant Name Role Phone Charisse Saeed MD Primary Care Provider [phone] Allergies No known active allergies Medications sulfamethoxazole -trimethoprim (BACTRIM DS) 800-160 MG tablet Take 1 tablet by mouth 2 times daily for 10 days. 20 tablet 02/05/2025 Active Active Problems Problem Noted Date Diagnosed Date Lumbar radiculopathy 08/17/2024 Spondylolisthesis of lumbar region 08/17/2024 Encounters Date Type Department Care Team Description 02/05/2025 11:12 AM CDT - 02/05/2025 11:36 AM CDT Emergency [facility] Emergency Department [address] [place] [address] Jd Broderick, PA-C Pyelonephritis (Primary Dx); Acute [...] Sex Assigned at Female 07/08/2024 3:24 PM FEED WEIGHER Legal Sex Female 2:58 PM FEED WEIGHER Gender Identity Female 07/08/2024 3:24 PM FEED WEIGHER Sexual Orientation Straight 07/08/2024 3: 24 PM FEED WEIGHER Last Filed Vital Signs Vital Sign Reading [...] 05/20/2021, 01/19/2017 HIV SCREENING Completed 06/17/2024 Insurance [facility] Care Teams Oracle Security Consultant Relationship Specialty Start Date End Date Charisse Saeed MD [address] [place] [address] PCP - General 08/15/24
--- OUTSIDE RECORDS SUMMARY | 2025-02-08 00:39 | XMS_ITS | Encounter Summary ---
Author Organization [place] Address [address] [place] [address]. [place] [address] Care Team Providers Care Coat Padder Name Role Phone Charisse Saeed MD Primary Care Provider [phone] Encounter Details Date Type Department Care Team [...] Sex Assigned at Female 07/08/2024 3:24 PM INSURANCE VERIFICATION REPRESENTATIVE Legal Sex Female 2:58 PM INSURANCE VERIFICATION REPRESENTATIVE Gender Identity Female 07/08/2024 3:24 PM INSURANCE VERIFICATION REPRESENTATIVE Sexual Orientation Straight 07/08/2024 3: 24 PM INSURANCE VERIFICATION REPRESENTATIVE documented as of this encounter Plan of Treatment Not on file documented as of this encounter Visit Diagnoses Not on filedocumented in this encounter Care Teams Coat Padder Relationship Specialty Start Date End Date Charisse [place]aeed [place] [address] PCP - General 08/15/24 documented as of this encounter
--- OUTSIDE RECORDS SUMMARY | 2025-02-08 00:40 | XMS_ITS | Encounter Summary ---
[facility] Address [address] [place] [address] Care Team Providers Care Tablet Machine Operator Name Role Phone Unavailable Primary Care Provider Unavailabl e Encounter Details Date Type Department Care Team (Late st Contact Info) Description 02/06/2025 Results Follow-Up Virtual Urgent Care [address] [place] [address] Elinor Ramirez, RENDERER, [facility] [address], [place] [address] Social History Tobacco Use Types Packs/Day Years [...]
--- OUTSIDE RECORDS SUMMARY | 2025-02-08 00:40 | XMS_ITS | Encounter Summary ---
Author Organization [facility] Address [address] [place] [address]. [place] [address] Care Team Providers Care Lead Quality Technician Name Role Phone Charisse Saeed MD Primary Care Provider [phone] Encounter Details Date Type Department Care Team (Late st Contact Info) Description 09/07/2024 [facility] Medical Advice [address] [place] [address] Claudia Abbott, PT [address] [place] [address] Social History Tobacco Use Types Packs/Day [...] Sex Assigned at Female 07/08/2024 3:24 PM PEDIATRIC MEDICAL ASSISTANT Legal Sex Female 2:58 PM PEDIATRIC MEDICAL ASSISTANT Gender Identity Female 07/08/2024 3:24 PM PEDIATRIC MEDICAL ASSISTANT Sexual Orientation Straight 07/08/2024 3: 24 PM PEDIATRIC MEDICAL ASSISTANT documented as of this encounter Plan of Treatment Not on file documented as of this encounter Visit Diagnoses Not on filedocumented in this encounter Care Teams Lead Quality Technician Relationship Specialty Start Date End Date Charisse Saeed MD [address] [facility] [facility] [address] PCP - General 08/15/24 documented as of this encounter
--- OUTSIDE RECORDS SUMMARY | 2025-02-08 00:40 | XMS_ITS | Clinical Summary ---
Author Organization [employer] [facility] Address [facility] [place] [address] Care Team Providers Care Medical Staff Manager Name Role Phone Charisse Saeed MD Primary [...] Description 11/29/2024 7:40 AM CDT Office Visit [facility] [address] [place] [address] Yoan Santos MD Procedure (Bilateral L5-S1 TFESI) 11/24/2024 Travel 11/09/2024 Transcribe Orders [facility] [address] [place] [address] Yoan Santos MD from Last 3 Months Immunizations Immunization Administration Dates Next Due AMB Influenza, IIV3 (Age >=3 years)(Flu Clinic Only) 04/18/2013 COVID-19 vaccine (Pfizer-Bio NTech 30mcg/0.3mL) 12YO+ SKYLER-SUCROSE PF, MDV 09/30/2021 COVID-19 vaccine (Pfizer-Bio NTech 30mcg/0.3mL) PF, MDV 11/20/2020,10/23/2020 SDlI-FobK-DKD (Pediarix) 10/02/2006,10/07,2005,05/29 DTaP-IPV (Kinrix) 06/17/2010 HIB PRP-OMP [...] on file Legal Sex Female 7:12 AM INTERNATIONAL ACCOUNT MANAGER Gender Identity Not on file Sexual Orientation [...] lb 6.4 oz) 06/23/2024 3:37 P M INTERNATIONAL ACCOUNT MANAGER Height 163.5 cm (5' 4.37) 06/17/2024 7:46 AM CS T Head Circumference 48.3 cm 05/11/2007 11 :54 AM INTERNATIONAL ACCOUNT MANAGER Head Circumference Percentile 69.27% 11:54 AM INTERNATIONAL ACCOUNT MANAGER Growth Chart: [facility] (Girls, 0- 36 Months) Body Mass Index 20.43 06/17/2024 7:46 AM INTERNATIONAL ACCOUNT MANAGER Plan of Treatment Health Maintenance Due Date [...] ANTI HIV 1/2 Routine 06/17/2024 8:15 AM INTERNATIONAL ACCOUNT MANAGER Screening for HIV (human immunodeficiency virus) GC CHLAMYDIA TRACH PROBE Routine 05/06/2024 8:58 AM INTERNATIONAL ACCOUNT MANAGER Screening examination for STI from Last 3 Months or Most Recently Relevant to Health Maintenance Results * AMB EPIDURAL STEROID INJECTION (11/29/2024 12:00 AM CDT) us Yoan Santos MD NEUROLOGY ORD Final Resu lt * ANTI HIV 1/2 [14288.0] (06/17/2024 8:15 AM INTERNATIONAL ACCOUNT MANAGER) HIV AG/AB, 4TH GEN NON-REACT HAYDEN NON-REACT HAYDEN [facility] Comment: HIV-1 antigen and HIV-1/HIV-2 antibodies [...] purpose. For additional information please refer to http://education.Set.fm.[employer]/faq/GKE399 (This link is being provided for informational/ educational purposes only.) The performance of this assay has not been clinically validated in patients less than 2 years old. Blood BLOOD SPECIMEN / Unknown 06/17/2024 8:15 AM INTERNATIONAL ACCOUNT MANAGER 06/17/2024 8:16 AM INTERNATIONAL ACCOUNT MANAGER us Charisse Saeed MD SEND OUTS Fin al Result [facility] [address] [place] [address], [facility] [address] [place] [address] * GC CHLAMYDIA TRACH PROBE (05/06/2024 8:58 AM INTERNATIONAL ACCOUNT MANAGER) CHLAMYDIA PROBE Negative 6:21 PM INTERNATIONAL ACCOUNT MANAGER [facility] N GONORRHOEAE PROBE Negative 05/06/2024 6:21 PM INTERNATIONAL ACCOUNT MANAGER [facility] Other URINE SPECIMEN / Unknown Non-Blood / Unknown 05/06/2024 8:58 AM INTERNATIONAL ACCOUNT MANAGER 05/06/2024 9:06 AM INTERNATIONAL ACCOUNT MANAGER us Charisse Saeed MD MICROBIOLOGY Fin al Result Performing Organization Address City/[facility]/ZIP Co de Phone Number [facility] [address] [place] [address], from Last 3 Months or Most Recently Relevant to Health Maintenance Insurance [facility] Care Teams Medical Staff Manager Relationship Specialty Start Date End Date Charisse Saeed MD [address] [place] [address] PCP - General 05
--- OUTSIDE RECORDS SUMMARY | 2025-02-08 00:40 | XMS_ITS | Clinical Summary ---
Author Organization [facility] Address [address] [place] [address] Care Team Providers Care Tankman Name Role Phone Unavailable Primary Care Provider Unavailabl e Source Comments You are receiving this document as you are listed as the primary care provider,follow-up provider, or the patient has been referred to you for consultation.This is in compliance with the Medicare and[facility] Cent[facility] EHR Incentive Program,which states Providers who transition their patient to another setting of careor provider of care or refers their patient to another provider of care shouldprovide summary care record for each transition of care or referral. [facility] Allergies No known active allergies Medications escitalopram [...] 02/06/2025 Results Follow-Up [facility] [address] [place] [address] Elinor Ramirez APRN, BRITTANY 02/04/2025 4:20 PM CDT Lab Visit [facility] [address] [facility] [address] Dysuria 02/04/2025 4:00 PM CDT Office Visit [facility] [place] [address] Jose Roman PA-C Urinary tract infection with [...] Urine Culture Growth(A) 02/05/2025 7:48 PM CDT [facility] Urine Culture >100,000 CFU/mL Staphylococcus saprophyticus 02/05/2025 7:48 PM CDT [facility] Comment:Routine susceptibili ty of Staphyococcus saprophyticus is not recommended by CLSI since infections respond to antimicrobial agents commonly used to treat acute uncomplicated urinary tract infections. Urine URINE SPECIMEN COLLECTION, CLEAN CATCH / Unknown Non-blood Collection / Unknown 02/04/2025 4:07 PM CDT 02/04/2025 4:12 PM CDT us Jose Roman PA-C LAB_1 Final Re sult [facility] CLIA: [id number] [address] [place] [address] * (ABNORMAL) Urinalysis Routine, Micro/Culture if Pos: Clean Catch (02/04/2025 4:07 PM CDT) Urine Microscopic Evaluation Reflex Order Comment Urinalysis results meet criteria for reflex, urine microscopic evaluation performed. 02/04/2025 4:12 PM CDT [facility] Color Yellow 02/04/2025 4:12 PM CDT [facility] Clarity Cloudy(A) Clear 02/04/2025 4:12 PM CDT [facility] Specific [place] <=1.005(A) 1.005 - 1.030 02/04/2025 4:12 PM [...] LAB_1 Final Re sult [facility] CLIA: [id number] [address] [place] [address] * (ABNORMAL) Urine Microscopic Evaluation: Clean Catch [...] LAB_1 Final Re sult [facility] CLIA: [id number] [address] [place] [address] from Last 3 Mon[place] [address]
[2025-02-08] MEDS: IBUPROFEN 600 MG TABLET PO (00:41)
[2025-02-08 01:46] VITALS: PULSE 81; RESP 16; TEMP 36.8; O2SAT 99
== END 2025-02-08 01:49 | disposition home or self-care (01) ==
PROVIDERS: Emergency Provider Family Medicine; PCP Pediatrics
DX: N39.0 Urinary tract infection, site not specified (principal)
CPT/HCPCS: 74176; 81001; 99284; A9270

== ENCOUNTER 2025-06-06 08:30 | Outpatient (CLI) | payer OTHER, SELFPAY | END 2025-06-06 08:31 | disposition home or self-care (01) | LOC: INJ CL 08:31 | PROVIDERS: PCP Pediatrics; Visit Provider Family Medicine | DX: M43.06 Spondylolysis, lumbar region (principal) | CPT/HCPCS: 64493; J0702; Q9966 ==